=== PATIENT | female | born 1995 | race Two or more races ===

== ENCOUNTER 2019-11-11 06:00 | Day surgery (SDC) | payer OTHER ==
[2019-11-11] MEDS ORDERED: PERCOCET 5-3251 EACH PO (08:19)
[2019-11-11] MEDS ORDERED: RECTICARE30 GM TOP (08:20)
== END 2019-11-11 15:40 | disposition home or self-care (01) ==
LOC: CIR.AMB 06:00
PROVIDERS: ATTEND Surgery
DX: K64.8 Other hemorrhoids (principal); K64.3 Fourth degree hemorrhoids; K64.4 Residual hemorrhoidal skin tags; K62.89 Other specified diseases of anus and rectum